=== PATIENT | male | born 1990 | race Caucasian/White ===

== ENCOUNTER 2016-12-20 16:16 | Emergency (ER) | payer SELFPAY | END 2016-12-20 16:37 | disposition home or self-care (01) | LOC: NAV ERS 16:16 | DX: H65.93 Unspecified nonsuppurative otitis media, bilateral (principal) | CPT/HCPCS: 99283 ==

== ENCOUNTER 2018-05-14 15:17 | Emergency (ER) | payer SELFPAY | END 2018-05-14 15:48 | disposition home or self-care (01) | LOC: NAV ERS 15:17 | DX: H93.12 Tinnitus, left ear (principal) | CPT/HCPCS: 99282 ==